=== PATIENT | female | born 1980 | race Caucasian/White ===

== ENCOUNTER 2016-07-31 20:22 | Emergency (ER) | payer OTHER ==
[~2016-07-31 20:22] MED LIST: AMOXICILLIN500 M1 PO; AUGMENTIN PO; BACTRIM DS TABL1 TA1 PO; DEPO-PROVER150 MG/M1 IM; FLEXERIL10 MG PO; NO MEDICATIONS; PEPCID40 MG PO
== END 2016-07-31 21:26 | disposition home or self-care (01) ==
LOC: SED 20:22
DX: B34.9 Viral infection, unspecified (principal)
CPT/HCPCS: 87651; 99283